=== PATIENT | female | born 1975 ===

== ENCOUNTER 2021-05-25 07:27 | Day surgery (SDC) | payer OTHER | END 2021-05-25 11:35 | disposition home or self-care (01) | LOC: AMB-ENDOS 07:27 | PROVIDERS: ATTEND Surgery | DX: K63.5 Polyp of colon (principal); K64.4 Residual hemorrhoidal skin tags; Z20.822 Contact with and (suspected) exposure to COVID-19; Z12.11 Encounter for screening for malignant neoplasm of colon ==